=== PATIENT | male | born 1995 | race Caucasian/White ===

== ENCOUNTER 2021-12-16 02:50 | Emergency (ER) | payer SELFPAY ==
[~2021-12-16] VITALS: Ht 170.2 cm; Wt 99.8 kg
[2021-12-16 03:32] VITALS: BP_SYST 152
[2021-12-16] MEDS ORDERED: CEPH-548 PO (03:32)
[2021-12-16] MEDS ORDERED: cefTRIAXone 1 GM in LIDOCAINE 1%, 20 ML MDV 2.1 ML IM ONE (03:45)
[2021-12-16 04:10] VITALS: BP_SYST 145
== END 2021-12-16 04:10 | disposition home or self-care (01) ==
LOC: SED 02:50
DX: S60.362A Insect bite (nonvenomous) of left thumb, initial encounter (principal); L03.012 Cellulitis of left finger; Z79.899 Other long term (current) drug therapy; W57.XXXA Bitten or stung by nonvenomous insect and other nonvenomous arthropods, initial encounter; Y93.89 Activity, other specified; Y92.89 Other specified places as the place of occurrence of the external cause; Y99.8 Other external cause status
CPT/HCPCS: 96372; 99283; J0696; J2001